=== PATIENT | male | born 1935 | race Caucasian/White ===

== ENCOUNTER 2018-06-11 23:41 | Inpatient (IN) | payer MEDICARE ==
[2018-06-12 00:17] LABS: Bilirubin Small (Negative); Blood, Urine Large (Negative); Clarity CLOUDY (Clear); Glucose, Urine (Dipstick) Negative (Negative); Leukocyte Moderate (Negative); Nitrite Negative (Negative); Protein, Urine (Dipstick) 100 mg/dL (Neg-Trace); Specific Gravity, Urine 1.021 (1.002-1.036)
[2018-06-12 00:19] LABS: Bacteria/HPF None Seen HPF (None Seen); Hyaline Casts/LPF 7-10 HYALINE CAST LPF (0-3 Hyaline); Pathc Cast-AUWi Flag 0.72 (0-2.49); RBC/HPF GREATER THAN 50-TNTC HPF (0-3); Squamous Epithelial None Seen HPF (0-3)
[2018-06-12] MEDS ORDERED: Ondansetron HCl/PF 4 MG/2 ML Vial IVP PRN (02:01)
[2018-06-12] MEDS ORDERED: Ondansetron ODT 4 MG TAB SL PRN (02:01)
[2018-06-12] MEDS ORDERED: Acetaminophen 325 MG TAB PO PRN ×2 (02:01→07:40)
[2018-06-12 02:51] VITALS: BMI 20.9
[2018-06-12] MEDS ORDERED: Ondansetron ODT 4 MG TAB PO PRN (07:40)
[2018-06-12 07:45] VITALS: BP 119/65; TEMP 97.8
--- NOTE | 2018-06-12 08:08 | HP ---
PRIMARY CARE PROVIDER: Dr. Diaz. HISTORY OF PRESENT ILLNESS: The patient developed constipation, then suddenly could not urinate, sunny t to the [place] [facility]. A catheter was placed in his bladder with relief. He was then disimpacted . Since that time, he has had no abdominal pain, no fever, no chills. He has had a normal bowel mov ement, no blood in his stools. He had a colonoscopy in April and EGD in April. He feels good. He has no nausea or vomiting. He states this happened 6 years ago. PAST MEDICAL HISTORY: Atrial fibrillation, gastroesophageal reflux disease. PAST SURGICAL HISTORY: Atrial fibrillation ablation 6 years ago, left shoulder surgery in 1983 for tarik rogers. ALLERGIES: No known drug allergies. CURRENT MEDICATIONS: Aspirin 81 mg, flecainide 50 mg twice a day, Prevacid 15 mg a day, ubidecarenon e 100 mg a day. FAMILY HISTORY: No diabetes, coronary artery disease, hypertension or other inheritable diseases. SOCIAL HISTORY: . at bedside. CODE STATUS: FULL CODE status. No tobacco, no alcohol. REVIEW OF SYSTEMS: GENERAL: No headaches, dizziness, fainting, fever or chills. EYES: No double v ision, blurred vision, flashing lights. EAR, NOSE AND THROAT: No ear pain or drainage. No nasal bl eeding. No trouble swallowing. CARDIAC: No chest pain, orthopnea or paroxysmal nocturnal dyspnea. RESPIRATORY: No cough, wheezing or asthma. GASTROINTESTINAL: See present illness. No current abd ominal pain, nausea, vomiting or constipation. GENITOURINARY: Has catheter and has no history of fr equent urination or nocturia. No blood in his urine. MUSCULOSKELETAL: No pain or swelling in his j oints, muscles, legs. PSYCHIATRIC: No anxiety, depression. NEUROLOGICAL: No strokes, seizures or focal weakness. SKIN: Easy bruising related to actinic changes in aspirin. HEME/LYMPH: No tender or swollen lymph nodes in axilla, inguinal or cervical area. PHYSICAL EXAMINATION: GENERAL: Alert, pleasant, cooperative gentleman. VITAL SIGNS: Blood pressure 144/75, temperature 98.5, pulse 90, respirations 19. HEENT: Examination of his head, eyes, ears, nose, and throat reveal pupils equal, round, and reactiv e to light. Extraocular movements are intact. Sclerae are white. Tympanic membranes clear. Nose i s clear. Throat is clear. NECK: Supple, no jugular venous distention, adenopathy or thyromegaly. CHEST: Clear to auscultation and percussion. HEART: Had a regular rate and rhythm. First and second heart sounds are clear. There are no murmur s or gallops. ABDOMEN: Soft, bowel sounds are normal. There is no hepatosplenomegaly, no mass, no rebound, no bru its. EXTREMITIES: Reveal no cyanosis, clubbing or edema. PULSES: Carotid, radial, femoral, and dorsalis pedis pulses intact and symmetric. SKIN: Warm and dry with ecchymoses on his arms related to actinic thinning. HEME/LYMPH: No tender or swollen lymph nodes in his axilla, inguinal or cervical area. No appropria te changes. No petechial changes. NEUROLOGIC: Cranial nerves II-XII are intact. Deep tendon reflexes symmetric. LABORATORY DATA AND IMAGING DATA: Lab done in [place]; UA too many to count red cells, greater than 50 white cells, negative nitrate, moderate esterase. White count 17.9 with neutrophilia, hemogl obin 16.5, platelet count 152,000. Sodium 140, potassium 4.6, BUN 26, creatinine 1.38, lactic acid 1 .1. Liver function tests normal. EKG: Regular sinus rhythm with no ST-T abnormality, reviewed by teresa mchugh. Radiographic reports include abdominal and pelvis CT which reports a possible risk for stercoral colitis. ASSESSMENT: 1. Constipation relieved, urinary retention, relieved with Molina catheter. 2. History of atrial fibrillation on Tambocor. 3. Gastroesophageal reflux disease. PLAN: Discontinue Molina. Repeat CBC, comp metabolic profile, we will evaluate in several hours. Cu rrently, I believe the patient will be safe to be discharged this afternoon. I suspect changes on hi s urine are reflected in the Molina catheter in acute retention. The abdomen is benign post-impaction . His home medicines will be continued. He will be placed here on an observation basis.
[2018-06-12 09:00] LABS: #Lymphocytes 0.7 thou/uL (1.20-3.40); #Monocytes 1.4 thou/uL (0.11-0.59); #Neutrophils 14.5 thou/uL (1.40-6.50); %Basophils 0.1 % (0.0-1.0); %Eosinophils 0.2 % (0.0-10.0); %Lymphocytes 4.3 % (21.0-51.0); %Monocytes 8.6 % (0.0-10.0); %Neutrophils 86.9 % (42.0-75.0); Hemoglobin 15.4 g/dL (14.0-18.0); Mean Corpuscular HGB CONC 33.6 g/dL (32.0-36.0); Mean Corpuscular Hemoglobin 31.7 pg (27.0-31.0); Mean Corpuscular Volume 94.5 fL (78.0-98.0); Mean Platelet Volume 9.6 fL (7.4-10.4); Platelet Count 136 thou/uL (130-400); RBC Distribution Width 11.7 % (11.5-14.5); Red Blood Cell (RBC) Count 4.84 mill/uL (4.70-6.10); White Blood Cell (WBC) Count 16.7 thou/uL (4.8-10.8)
[2018-06-12] MEDS ORDERED: Ubidecarenone 50 MG CAP PO SCH (09:00)
[2018-06-12] MEDS ORDERED: Non-Formulary Item 1 EACH (Ubidecarenone [Coq-10] 100 MG) PO SCH (09:00)
[2018-06-12] MEDS ORDERED: LANSOPRAZOLE 15 MG PO SCH (09:00)
[2018-06-12] MEDS ORDERED: Flecainide 50 MG TAB PO SCH (09:00)
[2018-06-12 09:09] LABS: Anion Gap 14 mmol/L (10-20); BUN (Urea Nitrogen) 20 mg/dL (8.4-25.7); Calc. Creatinine Clearance 45 mL/min (70-130); Calcium 8.8 mg/dL (7.8-10.44); Carbon Dioxide 27 mmol/L (23-31); Chloride 101 mmol/L (98-107); Estimated GFR-MDRD 61; Glucose 124 mg/dL (83-110); Potassium 3.7 mmol/L (3.5-5.1); Sodium 138 mmol/L (136-145)
--- NOTE | 2018-06-12 15:36 | DIS ---
DATE OF ADMISSION: 06/12/2018 DATE OF DISCHARGE: 06/12/2018 PRIMARY CARE PROVIDER: Vaughn Diaz M.D. FINAL DIAGNOSES: Constipation, urinary retention, atrial fibrillation, gastroesophageal reflux disea se. DISCHARGE MEDICATIONS: Aspirin 81 mg a day, latanoprost eyedrops, Prevacid 15 mg a day, flecainide 5 0 mg twice a day, Coenzyme QT 100 mg a day. ALLERGIES: No medical allergies. PENDING AT TIME OF DISCHARGE: Nothing. CODE STATUS: FULL. DIET: Regular. HOSPITAL COURSE: The patient was seen in the [place] [facility] yesterday with constipation , which resulted in urinary retention. Molina catheter was placed. He had microscopic hematuria. Ur ine culture is clear so far. His laboratory done in [place] revealed a white cell count of 17.9 , hemoglobin 16.5, platelet count 152,000. Creatinine is 1.38. Lactic acid 1.1. Abdominal pelvis C T revealed risk of stercoral colitis. The patient was evaluated here. He had a benign abdomen. He is passing a normal stool. His repeat basic metabolic profile is normal. His white count is still 1 6.7, but it has no left shift. He has no fever, no abdominal pain, completely benign abdomen. He is eating with no nausea. He has been having normal bowel movements. His urine immediately after the Molina was pulled out, had gross blood, but it is now clear. He is being discharged home on his routi ne medicines to follow up with Dr. Diaz within 1 week. CONSULTATIONS: None. PROCEDURES: None.
[2018-06-12] MEDS ORDERED: Latanoprost 0.005% Ophth Soln 2.5 ml Bottle EA EYE SCH (21:00)
[2018-06-12] MEDS ORDERED: Non-Formulary Item 1 EACH (Latanoprost/Pf [Latanoprost 0.005% Eye Drop] 1 DROP) EA EYE SCH (21:00)
--- NOTE | 2018-06-14 20:13 | EKG ---
Test Reason : ERINDICATION Blood Pressure : / mmHG Vent. Rate : 087 BPM Atrial Rate : 087 BPM P-R Int : 188 ms QRS Dur : 076 ms QT Int : 342 ms P-R-T Axes : 069 -14 042 degrees QTc Int : 411 ms Normal sinus rhythm Normal ECG Confirmed by RIA RODRIGUEZ ([id number]), publication editor CHARLIE GARCIA ([id number]) on 06/14/2018 8:13:28 PM Referred By: Confirmed By:RIA RODRIGUEZ
== END 2018-06-12 17:08 | disposition home or self-care (01) | DRG 392 ==
LOC: ERS 23:41 → T4-B 06-12 00:33 → OBSVTOIN 06-12 00:33 → INTOOBSV 06-12 00:33
PROVIDERS: ADMIT Internal Medicine; ATTEND Internal Medicine
DX: K59.00 Constipation, unspecified (principal); R33.9 Retention of urine, unspecified; I48.2 Chronic atrial fibrillation; Z79.01 Long term (current) use of anticoagulants; K21.9 Gastro-esophageal reflux disease without esophagitis
CPT/HCPCS: 36415; 80048; 81003; 81015; 85025; 87086; 93005

== ENCOUNTER 2018-06-14 16:16 | Emergency (ER) | payer MEDICARE ==
[2018-06-14 17:09] LABS: #Basophils 0.1 thou/uL (0.0-0.2); #Eosinphils 0.1 thou/uL (0.0-0.7); #Lymphocytes 0.6 thou/uL (1.20-3.40); #Monocytes 0.8 thou/uL (0.11-0.59); #Neutrophils 7.2 thou/uL (1.40-6.50); %Basophils 0.6 % (0.0-1.0); %Eosinophils 0.9 % (0.0-10.0); %Lymphocytes 6.7 % (21.0-51.0); %Monocytes 9.3 % (0.0-10.0); %Neutrophils 82.4 % (42.0-75.0); Hemoglobin 16.3 g/dL (14.0-18.0); Mean Corpuscular HGB CONC 34.4 g/dL (32.0-36.0); Mean Corpuscular Hemoglobin 32.8 pg (27.0-31.0); Mean Corpuscular Volume 95.4 fL (78.0-98.0); Mean Platelet Volume 9.1 fL (7.4-10.4); Platelet Count 143 thou/uL (130-400); RBC Distribution Width 11.8 % (11.5-14.5); Red Blood Cell (RBC) Count 4.96 mill/uL (4.70-6.10); White Blood Cell (WBC) Count 8.8 thou/uL (4.8-10.8)
[2018-06-14 17:16] LABS: PTT 26.7 SEC (22.9-36.1); Prothrombin Time 13.1 SEC (12.0-14.7)
[2018-06-14 17:30] LABS: ALT (SGPT) 17 U/L (8-55); AST (SGOT) 15 U/L (5-34); Albumin 4.4 g/dL (3.4-4.8); Alkaline Phosphatase 57 U/L (40-150); Anion Gap 13 mmol/L (10-20); BUN (Urea Nitrogen) 23 mg/dL (8.4-25.7); Bilirubin, Total 0.6 mg/dL (0.2-1.2); Calc. Creatinine Clearance 0 mL/min (70-130); Calcium 9.6 mg/dL (7.8-10.44); Carbon Dioxide 26 mmol/L (23-31); Chloride 104 mmol/L (98-107); Estimated GFR-MDRD 54; Globulin 2.6 g/dL (2.4-3.5); Glucose 84 mg/dL (83-110); Potassium 4.1 mmol/L (3.5-5.1); Sodium 139 mmol/L (136-145)
== END 2018-06-14 20:38 | disposition home or self-care (01) ==
LOC: ERS 16:16
DX: K62.5 Hemorrhage of anus and rectum (principal); K59.00 Constipation, unspecified; I48.91 Unspecified atrial fibrillation; K21.9 Gastro-esophageal reflux disease without esophagitis; I10 Essential (primary) hypertension; Z79.899 Other long term (current) drug therapy; Z79.82 Long term (current) use of aspirin
CPT/HCPCS: 36415; 80053; 82274; 85025; 85610; 85730; 86850; 86900; 86901; 99283

== ENCOUNTER 2022-02-05 17:24 | Emergency (ER) | payer MEDICARE | END 2022-02-05 19:09 | disposition home or self-care (01) | LOC: ERS 17:24 | DX: I82.442 Acute embolism and thrombosis of left tibial vein (principal); I82.432 Acute embolism and thrombosis of left popliteal vein; I82.412 Acute embolism and thrombosis of left femoral vein; K21.9 Gastro-esophageal reflux disease without esophagitis; I10 Essential (primary) hypertension; Z79.899 Other long term (current) drug therapy | CPT/HCPCS: 93005 ==